=== PATIENT | male | born 2000 | race Caucasian/White ===

== ENCOUNTER 2020-11-16 18:27 | Emergency (ER) | payer OTHER ==
[~2020-11-16] VITALS: Ht 182.9 cm; Wt 163.6 kg
[2020-11-16 21:20] VITALS: BP 119/76; PULSE 103; TEMP 99.2
== END 2020-11-16 21:22 | disposition home or self-care (01) ==
LOC: COL.ER 18:27
DX: J06.9 Acute upper respiratory infection, unspecified (principal); F17.200 Nicotine dependence, unspecified, uncomplicated; Z20.822 Contact with and (suspected) exposure to COVID-19

== ENCOUNTER 2021-07-14 14:23 | Emergency (ER) | payer OTHER ==
[~2021-07-14] VITALS: Ht 182.9 cm; Wt 154.5 kg
[2021-07-14 14:37] VITALS: TEMP 99.4
[2021-07-14] MEDS ORDERED: PREDNISONE20 MG PO (14:37)
[2021-07-14] MEDS ORDERED: TESSALON P100 MG/CAP PO (14:37)
[2021-07-14 15:58] LABS: BASO # 0.1 K/mm3 (0.0-0.2); BASO % 0.4 % (0.0-2.0); EOS # 0.1 K/mm3 (0.0-0.7); EOS % 0.6 % (0-4.0); GRAN # 13.1 K/mm3 (1.4-6.5); GRAN % 79.3 % (42.2-75.2); HEMATOCRIT 41.9 % (42.0-52.0); HEMOGLOBIN 14.1 g/dl (13.5-18.0); LYMPH # 2.1 K/mm3 (1.2-3.4); LYMPH % 12.6 % (20.0-51.0); MEAN CELL VOLUME 85 fl (80.0-100.0); MEAN CORPUSCULAR HEMOGLOBIN 29 pg (27.0-31.0); MEAN CORPUSCULAR HGB CONC 34 g/dl (33.0-37.0); MEAN PLATELET VOLUME 10.9 fl (7.4-10.4); MONO # 1.1 K/mm3 (0.1-0.6); MONO % 6.6 % (1.7-9.3); PLATELET COUNT 226 K/mm3 (130-400); RED BLOOD COUNT 4.91 M/mm3 (4.20-5.60); REDCELL DISTRIBUTION WIDTH-CV 14.1 % (11.5-14.5)
[2021-07-14 16:32] LABS: BILIRUBIN,TOTAL 1.6 mg/dL (0.2-1.2); C-REACTIVE PROTEIN 5.12 mg/dL (0.00-0.50); CALCIUM 9.1 mg/dL (8.4-10.2); CREATININE, serum 1.11 mg/dL (0.72-1.25); POTASSIUM 3.9 mmol/L (3.5-4.5); TOTAL PROTEIN 7.1 gm/dL (6.2-8.1)
[2021-07-14] MEDS ORDERED: BACTRIM DS 8001 TAB PO (18:03)
[2021-07-14 21:01] VITALS: BP 142/83; PULSE 79
== END 2021-07-14 21:01 | disposition home or self-care (01) ==
LOC: COL.ER 14:23
PROVIDERS: Physician Assistant
DX: L03.314 Cellulitis of groin (principal); E66.9 Obesity, unspecified; F17.200 Nicotine dependence, unspecified, uncomplicated; Z68.42 Body mass index [BMI] 45.0-49.9, adult
CPT/HCPCS: J2543; J3370; J7030; J7040

== ENCOUNTER → 2022-06-05 | Outpatient (CLI) | payer OTHER ==
[~2022-06-05] MED LIST: BACTRIM DS 8001 TAB PO; PREDNISONE20 MG PO; TESSALON P100 MG/CAP PO
[2022-06-05 12:46] LABS: HEMATOCRIT 39.4 % (42.0-52.0); HEMOGLOBIN 13.4 g/dl (13.5-18.0); MEAN CELL VOLUME 86 fl (80.0-100.0); MEAN CORPUSCULAR HEMOGLOBIN 29 pg (27-31); MEAN CORPUSCULAR HGB CONC 34 g/dl (33.0-37.0); MEAN PLATELET VOLUME 10.5 fl (7.4-10.4); PLATELET COUNT 188 K/mm3 (130-400); RED BLOOD COUNT 4.59 M/mm3 (4.20-5.60); REDCELL DISTRIBUTION WIDTH-CV 13.4 % (11.5-14.5)
[2022-06-05 13:02] LABS: ALBUMIN 3.7 gm/dL (3.5-5.0); BILIRUBIN,TOTAL 0.6 mg/dL (0.2-1.2); C-REACTIVE PROTEIN 0.46 mg/dL (0.00-0.50); CALCIUM 8.7 mg/dL (8.4-10.2); CREATININE, serum 0.92 mg/dL (0.72-1.25); POTASSIUM 4.1 mmol/L (3.5-4.5); TOTAL PROTEIN 7.2 gm/dL (6.2-8.1)
[2022-06-05 13:28] LABS: BAND 7 % (0-10); EOSINOPHIL 2 % (0-4); METAMYELOCYTE 1 % (0-0); NEUTROPHILS 24 % (42.0-75.2)
[2022-06-05 13:29] LABS: LYMPHOCYTE 65 % (20.0-51.0)
[2022-06-06 07:57] LABS: PATHOLOGY DIFF REVIEW OK
== END ==
LOC: COL.LAB 12:11
DX: R10.31 Right lower quadrant pain (principal)